=== PATIENT | female | born 1935 | race Caucasian/White ===

== ENCOUNTER 2021-03-01 19:53 | Outpatient (CLI) | payer MEDICARE, OTHER | END 2021-03-01 23:59 | disposition short-term general hospital (02) | LOC: EMS 19:53 | PROVIDERS: ATTEND Emergency Medicine | DX: R47.02 Dysphasia (principal) | CPT/HCPCS: A0425; A0429 ==

== ENCOUNTER 2022-01-29 11:32 | Outpatient (CLI) | payer MEDICARE, OTHER | END 2022-01-29 11:33 | disposition short-term general hospital (02) | LOC: EMS 11:32 | DX: R41.0 Disorientation, unspecified (principal); R51.9 Headache, unspecified; R47.9 Unspecified speech disturbances | CPT/HCPCS: A0425; A0429 ==

== ENCOUNTER 2023-10-04 15:23 | Outpatient (CLI) | payer MEDICARE, OTHER | END 2023-10-04 23:59 | disposition short-term general hospital (02) | LOC: EMS 15:23 | DX: R47.81 Slurred speech (principal); R47.1 Dysarthria and anarthria; R29.810 Facial weakness; R53.1 Weakness | CPT/HCPCS: A0425; A0429 ==

== ENCOUNTER 2024-06-17 16:03 | Outpatient (CLI) | payer MEDICARE, OTHER | END 2024-06-17 16:04 | disposition left against medical advice (07) | LOC: EMS 16:03 | DX: Z91.81 History of falling (principal); Z79.01 Long term (current) use of anticoagulants ==